=== PATIENT | female | born 1970 | race Caucasian/White ===

== ENCOUNTER → 2017-05-21 07:45 | Outpatient (CLI) | payer OTHER, SELFPAY ==
--- NOTE | 2017-05-21 07:48 | US_ITS ---
STUDY: ULTRASOUND BREAST - LEFT REASON FOR EXAM: Female, 46 years old. Abnormal screening mammogram. TECHNIQUE: Axial and longitudinal images of the LEFT breast were performed with a high resolution ultrasound transducer. COMPARISON: Comparison is made with prior mammogram dated May 11, 2017. FINDINGS: LEFT Breast: The retroareolar region and lower half of the breast was examined by ultrasound. There is dense fibroglandular tissue. Minimally dilated retroareolar ducts. No solid or cystic mass lesion is seen. US/Breast Limited Unilateral IMPRESSION: Mild degree of retroareolar ductal dilatation. No solid or cystic mass lesion is seen. ASSESSMENT CATEGORY: BIRADS Category 2: Benign. A letter regarding these results will be sent to the patient by the facility within 30 days. Electronically Signed: Stanley Benedict MD at 8:50 EST Tel [phone], Service support ,
== END ==
PROVIDERS: Family Provider Internal Medicine; PCP Internal Medicine; Visit Provider Obstetrics & Gynecology
DX: R92.2 Inconclusive mammogram (principal)
CPT/HCPCS: 76642

== ENCOUNTER → 2017-05-25 16:36 | Outpatient (CLI) | payer OTHER, SELFPAY | PROVIDERS: Visit Provider Obstetrics & Gynecology | DX: N90.7 Vulvar cyst (principal) | CPT/HCPCS: 87070; 87186; 87205 ==

== ENCOUNTER → 2018-05-31 16:36 | Outpatient (CLI) | payer BC, SELFPAY ==
--- NOTE | 2018-05-31 16:39 | BI_ITS ---
MAMMOGRAPHY - BILATERAL SCREENING REASON FOR EXAM: Female, 47 years old. Routine annual screening examination. PERTINENT HISTORY: Mother with breast cancer. TECHNIQUE: Digital bilateral breast amauri (3D mammographic acquisition) in the CC and MLO projections. 2-D mediolateral oblique (MLO) and craniocaudad (CC) views of both breasts were obtained. CAD: Full Field Digital Mammography with Computer Added Detection was performed. COMPARISON: Comparison is made with prior study dated May 11, 2017. FINDINGS: Breast Composition: The breasts are extremely dense, which lowers the sensitivity of mammography. There are no dominant masses or suspicious calcifications. No other significant abnormalities are identified. There has been no significant change since the prior study. BI/SCREENING MAMM (CAD), BILAT IMPRESSION: Stable bilateral screening mammogram. Yearly follow-up mammogram recommended. (A) ASSESSMENT CATEGORY: BIRADS Category 1: Negative. A letter regarding these results will be sent to the patient by the facility within 30 days. Approximately 10% of breast cancers are not detected by mammography. A normal mammogram should not delay biopsy of a clinically suspicious abnormality. [id number] Electronically Signed: Stanley Benedict MD at 8:54 EST , Service support ,
== END ==
PROVIDERS: Family Provider Internal Medicine; PCP Internal Medicine; Referring Provider Obstetrics & Gynecology; Visit Provider Obstetrics & Gynecology
DX: Z12.31 Encounter for screening mammogram for malignant neoplasm of breast (principal)
CPT/HCPCS: 77063; 77067

== ENCOUNTER → 2020-01-23 09:16 | Outpatient (CLI) | payer BC, SELFPAY ==
--- NOTE | 2020-01-23 09:20 | BI_ITS ---
MAMMOGRAPHY - BILATERAL DIAGNOSTIC REASON FOR EXAM: Female, 49 years old. BILAT DIAGNOSTIC FOR RT LUMP X 1 WEEK - PERTINENT HISTORY: FAM HX OF MOTHER @ AGE LATE 60''S - NO PREV SURG''S - CURRENT CONTROL USE X SEVERAL YEARS - LT BREAST U/S DONE 2018 SHOWED MILD DILATED DUCTS TECHNIQUE: Digital bilateral breast amauri (3D mammographic acquisition) in the CC and MLO projections. 2-D mediolateral oblique (MLO) and craniocaudad (CC) views of both breasts were obtained. CAD: Full Field Digital Mammography with Computer Added Detection was performed. COMPARISON: None. FINDINGS: Breast Composition: The breasts are heterogeneously dense, which may obscure small masses. There are no dominant masses or suspicious calcifications. No other significant abnormalities are identified. BI/DIAG MAMM W/CAD, BILAT IMPRESSION: Further ultrasonographic evaluation recommended, as described above. (I) ASSESSMENT CATEGORY: BIRADS Category 0: Incomplete. Need additional imaging evaluation. A letter regarding these results will be sent to the patient by the facility within 30 days. Approximately 10% of breast cancers are not detected by mammography. A normal mammogram should not delay biopsy of a clinically suspicious abnormality. Electronically Signed: Alon Florez, at 12:07 EDT Tel , Service support ,
--- NOTE | 2020-01-23 09:20 | US_ITS ---
STUDY: ULTRASOUND BREAST - RIGHT REASON FOR EXAM: Female, 49 years old. TECHNIQUE: Axial and longitudinal images of the RIGHT breast were performed with a high resolution ultrasound transducer. # OF IMAGES: 16 COMPARISON: None. FINDINGS: RIGHT Breast: There is a lesion #1 in the lower outer quadrant. The lesion measures 8 x 7 x 4 mm in size. Clock notation: 7 o''clock position. Distance from nipple: 8 cm. Posterior Enhancement: No. Posterior Shadowing: None. Margins: Sharp and jagged. Echogenicity: Hypoechoic. Compression effect on Shape: No change. US/Breast Limited Unilateral IMPRESSION: Suspicious lesion in the right breast. ASSESSMENT CATEGORY: BIRADS Category 4: Suspicious - Biopsy Should Be Considered. A letter regarding these results will be sent to the patient by the facility within 30 days. Electronically Signed: Alon Florez, at 15:59 EDT Tel , Service support ,
== END ==
PROVIDERS: PCP Internal Medicine; Referring Provider Obstetrics & Gynecology; Visit Provider Obstetrics & Gynecology
DX: N63.13 Unspecified lump in the right breast, lower outer quadrant (principal)
CPT/HCPCS: 76642; 77062; 77066; G0279

== ENCOUNTER → 2020-01-29 12:58 | Outpatient (CLI) | payer BC, SELFPAY ==
--- NOTE | 2020-01-29 10:20 | BRBX_PTH ---
PATIENT: JESSENIA MUHAMMAD LOC: [facility] U#:[id number] AGE/SX: 54/F ROOM: RE01/29/[address]: Dr. Reese Hargrove MD : 1970 BED: DIS: SPEC #: [id number] RECD: 01/29/20 11:53 STATUS: AMYDA RENomi #: [id number] LEI: 01/29/20 10:[address]: Reese Hargrove DEPT: SURGICAL PATHOLOGY RECD BY: Samra Valdez ENTERED: 01/29/20 13:25 SP TYPE: BREAST BX OTHR DR: Eliseo Hawk MD Tissues: Right breast, NOS Procedures: Surgery Specimen Level IV HEADER OPERATION: Right breast excisional biopsy PRE-OP DIAGNOSIS: Right breast mass TISSUE SUBMITTED: Right breast tissue MICROSCOPIC DIAGNOSIS Right breast mass, excisional biopsy: Fibroadenoma (0.5 cm in greatest dimension). Negative for atypia or malignancy. SJ:[facility] 01/31/20 COMMENT Case has been reviewed in consultation with Dr. Jang who concurs with the above diagnosis. IDC:AM MICROSCOPIC DESCRIPTION Slides are reviewed. GROSS DESCRIPTION Received in fixative is one container labeled with the patient's name and designated right breast nodule. The specimen consists of two irregular fragments of morales-yellow fatty tissue that in aggregate measure 2 x 1.2 x 0.2 cm. The specimen is totally submitted in one cassette. / AM:[facility] 01/30/20 TC:1 CPT: 23248
[2020-01-29 10:21] VITALS: BMI 21.7
== END ==
PROVIDERS: PCP Internal Medicine; Visit Provider Surgery
DX: N63.10 Unspecified lump in the right breast, unspecified quadrant (principal)
CPT/HCPCS: 88305

== ENCOUNTER → 2020-04-15 | Outpatient (CLI) | payer BC, SELFPAY ==
[2020-01-29 10:21] VITALS: BMI 21.7
[2020-04-18 12:18] LABS: HPV APTIMA, High Risk Negative (Negative)
== END | disposition home or self-care (01) ==
LOC: LABSPEC 13:41
PROVIDERS: PCP Internal Medicine; Visit Provider Obstetrics & Gynecology
DX: Z12.4 Encounter for screening for malignant neoplasm of cervix (principal)
CPT/HCPCS: 87624; 88175; G0145

== ENCOUNTER → 2021-01-24 06:54 | Outpatient (CLI) | payer BC, SELFPAY ==
[2020-01-29 10:21] VITALS: BMI 21.7
--- NOTE | 2021-01-24 07:01 | BI_ITS ---
MAMMOGRAPHY - BILATERAL SCREENING 3-D TOMOSYNTHESIS REASON FOR EXAM: Female, 50 years old. screening for breast cancer PERTINENT HISTORY: No significant family history. TECHNIQUE: 2-D mammograms and 3-D Tomosynthesis of the breast (s) were performed. CAD was performed. COMPARISON: 05/31/2018 FINDINGS: The breast composition is Extermely dense tissue. Scattered benign calcifications are seen. No dense spiculated masses or suspicious microcalcifications are identified. No architectural distortion is identified. There is no skin thickening or retraction. There has been no significant change since the prior study. BI/SCRN MAMM (CAD)W/TING BILAT IMPRESSION: No mammographic signs of malignancy. Routine yearly mammograms recommended. ASSESSMENT CATEGORY: BIRADS Category 1: Negative. A letter regarding these results will be sent to the patient by the facility within 30 days. FOLLOW UP RECOMMENDATION: Yearly follow up mammogram recommended. (A) Approximately 10% of breast cancers are not detected by mammography. A normal mammogram should not delay biopsy of a clinically suspicious abnormality. Electronically Signed: Rene De La Paz MD at 8:50 EDT Tel , Service support ,
== END ==
PROVIDERS: PCP Registered Nurse; Referring Provider Surgery; Visit Provider Surgery
DX: Z12.31 Encounter for screening mammogram for malignant neoplasm of breast (principal)
CPT/HCPCS: 77063; 77067

== ENCOUNTER → 2022-05-28 | Outpatient (CLI) | payer OTHER, SELFPAY ==
--- NOTE | 2022-05-28 07:05 | BI_ITS ---
MAMMOGRAPHY - BILATERAL SCREENING REASON FOR EXAM: Female, 51 years old. Routine annual screening examination. PERTINENT HISTORY: Mother with breast cancer. Remote right excisional breast biopsy. TECHNIQUE: Digital bilateral breast ting (3D mammographic acquisition) in the CC and MLO projections. 2-D mediolateral oblique (MLO) and craniocaudad (CC) views of both breasts were obtained. CAD: Full Field Digital Mammography with Computer Added Detection was performed. COMPARISON: Comparison is made with prior study 01/24/2021 and 01/23/2020. FINDINGS: Breast Composition: The breasts are extremely dense, which lowers the sensitivity of mammography. There are no dominant masses or suspicious calcifications. No other significant abnormalities are identified. There has been no significant change since the prior study. BI/SCRN MAMM (CAD)W/TING BILAT IMPRESSION: Stable bilateral screening mammogram. Yearly follow-up mammogram recommended. (A) ASSESSMENT CATEGORY: BIRADS Category 1: Negative. A letter regarding these results will be sent to the patient by the facility within 30 days. Approximately 10% of breast cancers are not detected by mammography. A normal mammogram should not delay biopsy of a clinically suspicious abnormality. [id number] Electronically Signed: Stanley Benedict MD at 8:45 EST ,
== END | disposition home or self-care (01) ==
PROVIDERS: PCP Registered Nurse; Referring Provider Obstetrics & Gynecology; Visit Provider Obstetrics & Gynecology
DX: Z12.31 Encounter for screening mammogram for malignant neoplasm of breast (principal); Z80.3 Family history of malignant neoplasm of breast
CPT/HCPCS: 77063; 77067

== ENCOUNTER → 2023-12-03 | Outpatient (CLI) | payer OTHER, SELFPAY ==
--- NOTE | 2023-12-03 07:31 | BI_ITS ---
MAMMOGRAPHY - BILATERAL SCREENING REASON FOR EXAM: Female, 53 years old. Routine annual screening examination. PERTINENT HISTORY: Mother with breast cancer. TECHNIQUE: Digital bilateral breast ting (3D mammographic acquisition) in the CC and MLO projections. 2-D mediolateral oblique (MLO) and craniocaudad (CC) views of both breasts were obtained. CAD: Full Field Digital Mammography with Computer Added Detection was performed. COMPARISON: Comparison is made with prior study of May 28, 2022 and January 24, 2021. FINDINGS: Breast Composition: The breasts are extremely dense, which lowers the sensitivity of mammography. There are no dominant masses or suspicious calcifications. No other significant abnormalities are identified. There has been no significant change since the prior study. BI/SCRN MAMM (CAD)W/TING BILAT IMPRESSION: Stable bilateral screening mammogram. Yearly follow-up mammogram recommended. (A) ASSESSMENT CATEGORY: BIRADS Category 1: Negative. A letter regarding these results will be sent to the patient by the facility within 30 days. Approximately 10% of breast cancers are not detected by mammography. A normal mammogram should not delay biopsy of a clinically suspicious abnormality. [id number] Electronically Signed: Stanley Benedict MD at 8:20 EDT ,
== END | disposition home or self-care (01) ==
PROVIDERS: PCP Registered Nurse; Referring Provider Nurse Practitioner Women's Health; Visit Provider Nurse Practitioner Women's Health
DX: Z12.31 Encounter for screening mammogram for malignant neoplasm of breast (principal)
CPT/HCPCS: 77063; 77067

== ENCOUNTER 2024-01-17 08:00 | Outpatient (RCR) | payer OTHER, SELFPAY ==
--- NOTE | 2023-12-17 07:44 | HP.PTREVAL_ITS ---
Re-Evaluation Intro: Dr. Gary Jay, DO, It has been my pleasure to treat JESSENIA MUHAMMAD over the last 1 visits for Tendinopathy of glut med, labral tear of R hip joint. Please see the progress note below for an update on the physical therapy plan of care! Plan Plan Plan: 2X/ week for 4 weeks for R hip flexor/Quad stretching and foam rolling, hip strength (sussy hip ext/ABD), core strength with HEP HEP: Prone green strap hip flexor stretch, Jorge Alberto stretch Balance/Gait/Functional tests Balance/Special Test Scores Lower Extremity Functional Score: 56 Goals Goals Goal 1:: I HEP Goal Time Frame: 4-6 Weeks Goal 2:: Increase hip ABD and hip ext strength (at the time of the eval: LE MMT: R hip flex 16 and L 14.6 R knee ext 24.7 and L 23.6 R knee flex 17.1 and L 16.2 R hip abd 14.6 and L 19.4 R hip ext 13.2 and L 17.4) Goal Time Frame: 4-6 Weeks Goal 3:: Increase SLB on the R (12 sec at eval) Goal Time Frame: 4-6 Weeks Goal 4:: Decrease freq of pain descending the steps by 50% Goal Time Frame: 4-6 Weeks Anticipated Interventions Anticipated Interventions Patient/Client Instruction: Educate patient on: Condition and Plan of Care For the Purpose of:: To decrease pain, To increase ROM, To improve nutrient de livery to tissue, To increase oxygenation perfusion, To improve muscle performance and motor function, To improve ability to perform ADL's, To improve performance and independence with ADL's, To decrease level of supervision to perform tasks, To improve ability of physical actions for home/community/work/leisure, To improve gait and locomotor functions, To improve health of tissue, To decrease soft tissue restriction, To increase flexibility/ROM and To improve balance Therapeutic Exercise to Include: Strength training, Endurance training, Postural training, Flexibilty training, Gait and locomotor training, Neuromotor development, Passive ROM, Active ROM and Dynamic Lumbar Stabilization For the Purpose of:: To decrease pain, To increase ROM, To improve nutrient delivery to tissue, To improve muscle performance and motor function, To improve ability to perform ADL's, To increase tolerance to activity/condition/position, To improve performance and independence with ADL's, To decrease level of supervision to perform tasks, To improve ability of physical actions for home/community/work/leisure, To improve gait and locomotor functions, To improve health of tissue, To decrease soft tissue restriction, To increase flexibility/ROM, To improve balance and To improve safety with gait Functional Training to Include: Gait training For the Purpose of:: To decrease pain, To increase ROM, To improve nutrient delivery to tissue, To improve muscle performance and motor function, To improve ability to perform ADL's, To increase tolerance to activity/condition/position, To improve performance and independence with ADL's, To decrease level of supervision to perform tasks, To improve ability of physical actions for home/community/work/leisure, To improve gait and locomotor functions, To improve health of tissue, To decrease soft tissue restriction, To increase flexibility/ROM, To improve balance and To improve safety with gait Manual Therapy Techniques to Include: Mobilization, Passive ROM and Soft tissue mobilization For the Purpose of:: To decrease pain, To increase ROM, To improve nutrient delivery to tissue, To increase oxygenation perfusion, To improve muscle performance and motor function, To improve ability to perform ADL's, To increase tolerance to activity/condition/position, To improve performance and independence with ADL's, To decrease level of supervision to perform tasks, To improve ability of physical actions for home/community/work/leisure, To improve gait and locomotor functions, To improve health of tissue, To decrease soft tissue restriction, To increase flexibility/ROM and To improve endurance Re-Evaluation Ending Re-evaluation ending: Please do not hesitate to contact me at [phone] by phone or if you have questions or concerns regarding this new plan of care! Sincerely, Beronica Lopez MPT
--- NOTE | 2024-01-17 08:16 | HP.PTDCSUM ---
Discharge Summary D/C summary: It has been my pleasure to treat JESSENIA MUHAMMAD referred by Dr. Gary Jay DO, with the diagnosis of Tendinopathy of glut med, labral tear of R hip joint for a total of 8 visit(s). Discharge Date: 01/17/24 Please see the following information for a summary of their discharge status. Subjective Subjective: It is worse first thing in the morning. Pt is good with doing exercises but still has pain when getting up in the morning randomly or sit to stand she could get a weird sharp pain. The pain is not there all the time. She also gets the pain every time she goes down the steps and she has started to change the way she walks. Pain R hip pain: Pain Intensity (Out of 10): 0 Overall Improvement % Improvement: 0 Objective Objective/Function: SLB R 30 seconds LE MMT: R hip flex 17.3 and L 16.9 R knee ext 24.9 and L 23.6 R knee flex 17.1 and L 16.2 R hip abd 18.8 and L 19.4 R hip ext 20.2 and L 19.5 Goals Goal 1:: I HEP Goal Progress: Goal Met Goal 2:: Increase hip ABD and hip ext strength (at the time of the eval: LE MMT: R hip flex 16 and L 14.6 R knee ext 24.7 and L 23.6 R knee flex 17.1 and L 16.2 R hip abd 14.6 and L 19.4 R hip ext 13.2 and L 17.4) Goal Progress: Goal Met Goal 3:: Increase SLB on the R (12 sec at eval) Goal Progress: Goal Met Goal 4:: Decrease freq of pain descending the steps by 50% Goal Progress: Not Progressing Plan Plan: DC PT back to for MRI D/C Information Discharge Comments: DC PT to HEP and back to Dr for MRI d/c sentence: If there are questions or concerns regarding this patient's physical therapy, please feel free to call me at [phone]. Thank you for the referral of this patient. Sincerely, Beronica Lopez, MPT Balance/Gait/Functional tests Balance/Special Test Scores Lower Extremity Functional Score: 58 Improvement % Improvement: 0
== END 2024-01-17 09:42 | disposition home or self-care (01) ==
LOC: PT 08:00
PROVIDERS: PCP Registered Nurse; Referring Provider Orthopaedic Surgery; Visit Provider Orthopaedic Surgery
DX: M67.959 Unspecified disorder of synovium and tendon, unspecified thigh (principal); S73.191D Other sprain of right hip, subsequent encounter
CPT/HCPCS: 97110; 97161; 97530

== ENCOUNTER → 2024-03-20 | Outpatient (CLI) | payer OTHER, SELFPAY ==
--- NOTE | 2024-03-20 10:00 | RAD_ITS ---
NAME: Fadia Bowen PROCEDURE: IR Hip Arthrogram Injection Procedure WO Anesthesia ACCESSION NUMBER: [id number] CLINICAL HISTORY AND INDICATION: pain COMPARISON: MRI from 07/01/11 Procedure: The procedure with its potential risks was explained to the patient, all the questions and concerns were answered and written informed consent was obtained. A timeout was observed to confirm identity, procedure and site. Localization of the patient''s right hip was performed under fluoroscopy. The patient''s right hipwas prepped and draped in the usual sterile fashion. Local anesthesia was achieved with subcutaneous injection of 1% lidocaine. Under fluoroscopic guidance, a 22-gauge spinal needle was advanced into the right hip joint, and intra-articular location was confirmed with administration of 2 ml Isovue 300 Then 12 mL of diluted gadolinium based contrast ( 1:50:50 dilution of gadolinium contrast in Omnipaque 350 and normal saline, respectively ) was injected to the joint space. Intra-articular needle position was confirmed with intermittent fluoroscopy. The patient tolerated the procedure well, with no intermediate complications. The patient was escorted to the MR suite for further imaging. RAD/Arthrogram Hip w/ MRI IMPRESSION: Successful shoulder arthrogram with injection of 12 mL of Magnevist. Electronically Signed: Stanley Benedict MD at 15:16 EST ,
--- NOTE | 2024-03-20 10:05 | MRI_ITS ---
STUDY: MRI ARTHROGRAM OF THE RIGHT HIP REASON FOR EXAM: Female, 53 years old. SPRAIN OF RT HIP TECHNIQUE: 20 cc of dilute contrast and contrast was injected into the right hip joint. MRI was obtained in all 3 orthogonal planes. COMPARISON: Pelvis and right hip radiographs dated 12/10/2023. FINDINGS: There is mild degenerative arthrosis of the right hip joint with subchondral cyst formation in the right superior acetabulum (coronal T2 series 4 images 7-14). There is mild osteoarthritic spur formation of the right femoral head. Normal labrum. Intact femoral head. Normal femoral neck and intratrochanteric region. There is no demonstrated fracture. Normal gluteus minimus, medius and iliopsoas tendons and distal insertions. There is no trochanteric, iliopsoas or iliopectineal bursitis. Normal superior and inferior pubic rami. Normal pubic symphysis. Normal ischial tuberosity. Normal origin of the hamstring tendons. Normal visualized iliac wing, sacroiliac joint, and sacral ala. Normal visualized soft tissue structures of the pelvis. MRI/Lower Ext/Jt Only/W Contrast IMPRESSION: Mild degenerative arthrosis of the right hip joint. No discrete acetabular labral tear. Electronically Signed: Ryne Bates MD at 14:43 EST ,
[2024-03-20] MEDS: Lidocaine 2% (5ml sdv) 5 ML VIAL.MPF INFILT (10:33)
[2024-03-20] MEDS: Iopamidol 10 ML in Syringe 1 EACH 600 ML INTRAARTIC (10:36)
[2024-03-20] MEDS: Gadoterate Meglumine Diluted 10 ML, Iopamidol 5 ML, Lidocaine 1% (20 ml mdv) 5 ML, Epin... INTRAARTIC (10:37)
== END | disposition home or self-care (01) ==
PROVIDERS: PCP Registered Nurse; Referring Provider Orthopaedic Surgery; Visit Provider Orthopaedic Surgery
DX: S73.191A Other sprain of right hip, initial encounter (principal); X58.XXXA Exposure to other specified factors, initial encounter; M67.951 Unspecified disorder of synovium and tendon, right thigh
CPT/HCPCS: 27093; 73722; 77002; Q9967

== ENCOUNTER → 2024-08-16 | Outpatient (CLI) | payer OTHER, SELFPAY ==
[2024-08-18 14:08] LABS: HPV APTIMA, High Risk Negative (Negative)
== END | disposition home or self-care (01) ==
LOC: LABSPEC 11:40
PROVIDERS: Referring Provider Nurse Practitioner Women's Health; Visit Provider Nurse Practitioner Women's Health
DX: Z12.4 Encounter for screening for malignant neoplasm of cervix (principal)
CPT/HCPCS: 87624; 88175; G0145

== ENCOUNTER → 2024-12-22 | Outpatient (CLI) | payer OTHER, SELFPAY ==
--- NOTE | 2024-12-22 08:00 | BI_ITS ---
EXAM: SCRN MAMM (CAD)W/TING BILAT DATE: 12/22/2024 CLINICAL HISTORY: F, Age 54 y/o, SCREENING FOR BREAST CANCER TECHNIQUE: Procedure Code: [id number] Modality: MG Procedure: SCRN MAMM (CAD)W/TING BILAT COMPARISON: Prior exam(s) were compared FINDINGS: TISSUE DENSITY: The breasts are heterogeneously dense, which may obscure small masses. Bilateral Breast Mammographic Findings: No suspicious masses, calcifications or other abnormalities are identified. BI/SCRN MAMM (CAD)W/TING BILAT IMPRESSION: No mammographic evidence of malignancy in either breast OVERALL FINAL ASSESSMENT BI-RADS 1: NEGATIVE. RECOMMENDATION: Routine annual follow-up in 1 Year A letter with findings and recommendations will be mailed to the patient. Reading Location: [id number]
== END | disposition home or self-care (01) ==
LOC: OPBI 07:54
PROVIDERS: PCP Registered Nurse; Referring Provider Nurse Practitioner Women's Health; Visit Provider Nurse Practitioner Women's Health
DX: Z12.31 Encounter for screening mammogram for malignant neoplasm of breast (principal)
CPT/HCPCS: 77063; 77067